=== PATIENT | female | born 2000 | race Caucasian/White ===

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

== ENCOUNTER 2023-07-06 05:24 | Inpatient (IN) | payer MEDICAID ==
[~2023-07-06] VITALS: Ht 152.4 cm; Wt 72.7 kg
[2023-07-06] VITALS (19 sets, daily range): BP systolic 72–113; BP diastolic 32–67; PULSE 62–106; TEMP 97.9
[2023-07-06] MEDS ORDERED: LR 1,000 ML IV SCH ×2 (06:30)
[2023-07-06 06:57] LABS: MEAN CELL VOLUME 84 fl (80.0-100.0); MEAN CORPUSCULAR HEMOGLOBIN 28 pg (27-31); MEAN CORPUSCULAR HGB CONC 33 g/dl (33.0-37.0); MEAN PLATELET VOLUME 11.4 fl (7.4-10.4); PLATELET COUNT 335 K/mm3 (130-400); RED BLOOD COUNT 3.98 M/mm3 (4.10-5.30); REDCELL DISTRIBUTION WIDTH-CV 12.8 % (11.5-14.5)
[2023-07-06 06:58] LABS: HEMATOCRIT 33.4 % (37.0-47.0)
[2023-07-06] MEDS ORDERED: Oxytocin 10 UNITS/ML VIAL ONE (06:58)
[2023-07-06] MEDS ORDERED: NS 30 ML IV ONE (06:58)
[2023-07-06] MEDS ORDERED: Ketorolac 30 MG/ML VIAL ONE (06:58)
[2023-07-06] MEDS ORDERED: Ondansetron 4 MG/2 ML VIAL ONE (06:58)
[2023-07-06] MEDS ORDERED: dexAMETHasone 10 MG/ML VIAL ONE (06:58)
[2023-07-06] MEDS ORDERED: Phenylephrine 10 MG/ML VIAL ONE (07:00)
[2023-07-06 07:36] LABS: BAND 4 % (0-10); EOSINOPHIL 1 % (0-4); HYPOCHROMIA 1+; LYMPHOCYTE 28 % (20.0-51.0); NEUTROPHILS 57 % (42.0-75.2); PLATELET ESTIMATE NORMAL (NORMAL)
[2023-07-06] MEDS ORDERED: EPINEPHrine 1 MG/1 ML Ampule ONE (07:47)
[2023-07-06] MEDS ORDERED: Measles/Mumps/Rubella Virus Vaccine Live w Diluent 0.5 ML VIAL SQ SCH (08:30)
[2023-07-06] MEDS ORDERED: Morphine 4 MG/ML VIAL IV PRN (08:30)
[2023-07-06] MEDS ORDERED: Acetaminophen 500 MG TAB PO SCH (08:30)
[2023-07-06] MEDS ORDERED: LR 1,000 ML IV PRN (08:30)
[2023-07-06] MEDS ORDERED: Ondansetron 4 MG/2 ML VIAL IV PRN ×2 (08:30→10:00)
[2023-07-06] MEDS ORDERED: Magnes Hydrox (MOM) 80 MG/ML 30 ML CUP PO PRN (08:30)
[2023-07-06] MEDS ORDERED: oxyCODONE 5 MG TAB PO PRN (08:30)
[2023-07-06] MEDS ORDERED: Naloxone 0.4 MG/ML VIAL IV PRN (08:30)
[2023-07-06] MEDS ORDERED: Loratadine 10 MG TAB PO PRN (08:30)
[2023-07-06] MEDS ORDERED: diphenhydrAMINE 50 MG/ML 1 ML VIAL IV PRN (10:00)
[2023-07-06] MEDS ORDERED: Meperidine 50 MG/ML 1 ML VIAL IV PRN (10:00)
[2023-07-06 10:58] LABS: TRICYCLIC ANTIDEPRESS URINE NEGATIVE (NEGATIVE)
[2023-07-06] MEDS ORDERED: Ibuprofen 600 MG TAB PO SCH (14:20)
--- NOTE | 2023-07-06 14:59 | NUR ---
[employer] recieved social service consult for identified risk of illegal substances in . COOPER spoke with RN Valentine who reports no immediate concerns. She stated when patient was informed of postive UDS for marijuana today, that she "tensed up." RN states baby is in the nursery due to medical concerns, but mother has been appropriate. COOPER met with pt and FOB, [place] [phone]. SW was informed the infant's name is Burton. SW confirmed pt's address and phone number. SW inquired about work status and pt states she is still deciding if she will work. She informs SW that she has family who can assist with infant and are a good support. FOB reports his family is nearby and a good support. They have their own form of transportation with no concerns. Pt is connected with [facility] and will obtain continued formula through there. Pt intends to formula feed baby. Pt reports she has a 2 year-old male as her other child in the home. She reports no concerns with mental health. She reports to have scheduled appointments for follow-ups for her and . Pt has a crib, carseat, diapers/wipes, and enough clothes. SW discussed pt testing positive today for Marijuana and asked her to elaborate more. Pt reports she went to the vape store and consumed CBD gummies for alleviating symptoms of back pain, nausea, and insomnia. Pt states she did not use this every day. Pt has no concerns for continued substance use disorder. SW provided [facility] Guide and [employer] [facility] information for continued supports. Pt had no further questions for SW. COOPER Student Colette made CPS report #[id number] regarding maternal substance use during . Cord blood pending at this time.
[2023-07-06] MEDS ORDERED: Sennosides/Docusate 8.6-50 MG TAB PO SCH (17:00)
[2023-07-06] MEDS ORDERED: traZODone 50 MG TAB PO PRN (21:00)
[2023-07-07 02:00] VITALS: BP 88/47; PULSE 63; TEMP 97.6
[2023-07-07 08:30] VITALS: BP 108/58; PULSE 83
[2023-07-07] MEDS ORDERED: IBU600 MG PO (11:14)
[2023-07-07] MEDS ORDERED: ROXICODONE 55 MG/TAB PO (11:14)
[2023-07-07 17:00] VITALS: BP 103/68; PULSE 81; TEMP 98.1
[2023-07-07 20:21] VITALS: BP 113/79; PULSE 86; TEMP 97.8
--- NOTE | 2023-07-07 21:06 | NUR ---
INFANT WEIGHT DOWN 10%. DISCUSSED THIS FINDING WITH PARENTS. ENCOURAGED THEM TO FEED AT LEAST 30ML WITH EVERY FEEDING AND FEED AT LEAST EVERY 3 HOURS. EXPLAINED THAT IF IS SHOWING HUNGER CUES PRIOR TO 3 HOURS, HE SHOULD BE FED AT THAT TIME. PARENTS EXPRESS UNDERSTANDING WITH NO QUESTIONS AT THIS TIME.
[2023-07-08 08:30] VITALS: BP 91/57; PULSE 69; TEMP 97.9
== END 2023-07-08 11:45 | disposition home or self-care (01) | DRG 787 ==
LOC: OB 05:24
PROVIDERS: ADMIT Obstetrics & Gynecology
PROC: 10D00Z1 Extraction of Products of Conception, Low, Open Approach (ICD-10-PCS; principal; 2023-07-06)
DX: O34.211 Maternal care for low transverse scar from previous cesarean delivery (principal); O99.324 Drug use complicating childbirth; O99.02 Anemia complicating childbirth; F41.9 Anxiety disorder, unspecified; O69.81X0 Labor and delivery complicated by cord around neck, without compression, not applicable or unspecified; F12.90 Cannabis use, unspecified, uncomplicated; F32.A Depression, unspecified; Z3A.39 39 weeks gestation of pregnancy; Z37.0 Single live birth
CPT/HCPCS: J0171; J0665; J0690; J1100; J1885; J2371; J2405; J2590